=== PATIENT | female | born 1965 | race Caucasian/White ===

== ENCOUNTER → 2024-10-29 13:55 | Outpatient (RCR) | payer BC, OTHER, SELFPAY ==
--- NOTE | 2023-06-07 10:52 | PT.OIE ---
Current Diagnoses Malignant neoplasm of overlapping sites of right female breast (06/07/23) Visit Care Team Role Provider Type Meredith Booker, TISH, ROTOPRINTER Family Provider Non-Staff Primary Care Provider Specialty: Medical Address: [address]ry Guzman, [place], [address] Email: Franki Dunaway MD Attending Provider Physician Referring Provider Specialty: Oncology Address: [address] [place] [address], [address], [place], [address] Email: Physical Therapy Initial Evaluation PT-OP-A Visit Information Start: 06/05/23 12:30 Freq: Status: Active Protocol: Document 06/07/23 08:52 [facility] (Rec: 06/07/23 10:52 [facility] [id number]) Out-Patient Physical Therapy Visit Information Visit Information Visit Type Initial Evaluation Visit Start Time 09:00 Visit Stop Time 10:15 Total Visit Minutes 75 Visit Number 1 Evaluation Information Evaluation Date 06/07/23 Precautions Precautions history breast cancer PT-OP-B Current Condition Start: 06/05/23 12:30 Freq: Status: Active Protocol: Document 06/07/23 08:52 [facility] (Rec: 06/07/23 10:52 [facility] [id number]) Current Condition History of Current Condition Onset Date 2019 Current Complaints swelling left UE and subaxillary region History of Current Condition malignant neoplasm right breast s/p sarah mastectomy 2019. Had very large lymph node on left node; removed, that space just kept filling with fluid, having swelling on left arm, seemed to resolve. 1 1/2 years ago reports the area where the fluid used to collect and lateral edge of scar on left hurts and is hard . Soreness increases during the night. Has a compression sleeve for sarah UE's and lymphedema pump (Flexitouch), hasn't used in about a year. Has done PT for lymphedema right UE in [facility]. At this time only wears compression sleeves when flying, thinks they still fit. No compression for subaxillary area. Hasn't done lymphatic massage for about a year, hasn 't done scar massage. Gets keloid scars. Considering reconstruction Prior Treatments and Tests PT in [facility] 2019 Treatment Goals Patient/Caregiver Goals decrease leftUE swelling and obtain approproate compression sleeve PT-OP-C Subjective Start: 06/05/23 12:30 Freq: Status: Active Protocol: Document 06/07/23 08:52 [facility] (Rec: 06/07/23 10:52 [facility] [id number]) OP-PT Pain Assessment Pain Assessment Grid Paper Pain Assessment Grid Completed Yes Location left subaxillary Description Aching,Sharp,Stabbing,Tender PT-OP-J Posture/Palpation/Skin Start: 06/05/23 12:30 Freq: Status: Active Protocol: Document 06/07/23 08:52 [facility] (Rec: 06/07/23 10:52 [facility] [id number]) Palpation Assessment Location left subaxillary Palpation Findings Edema,Tenderness Skin Assessment Edema Assessment left subaxillary Subjective Edema Description Pain,Tightness Comments lymphedema Left Arm Subjective Edema Description Tightness Comments lymphedema Incisional Assessment Incision Appearance/Comments well healed, good mobility PT-OP-K Range of Motion Start: 06/05/23 12:30 Freq: Status: Active Protocol: Document 06/07/23 08:52 [facility] (Rec: 06/07/23 10:52 [facility] [id number]) Shoulder Goniometric Range of Motion Shoulder Left Shoulder ROM WFL No Flexion 155 Extension 30 Abduction 150 Horizontal Abduction 145 External Rotation at 45 degrees 60 Abduction Internal Rotation Behind Back (text) T8 Right Shoulder ROM WFL Yes Shoulder ROM Limitations Shoulder ROM Limitations Soft Tissue Tightness,Pain, Swelling PT-OP-N Lymphedema Start: 06/05/23 12:30 Freq: Status: Active Protocol: Document 06/07/23 08:52 [facility] (Rec: 06/07/23 10:52 [facility] [id number]) Lymphedema Measurements Upper Extremity Circumference Measurements Right Affected MCP 20.4 cm Dorsum of Hand 21.8 cm Wrist 18.7 cm 5 cm From Wrist Crease 21.9 cm 10 cm From Wrist Crease 26.1 cm 15 cm From Wrist Crease 28.3 cm 20 cm From Wrist Crease 28.9 cm 25 cm From Wrist Crease 30.5 cm 30 cm From Wrist Crease 33.3 cm 35 cm From Wrist Crease 37.3 cm 40 cm From Wrist Crease 41.8 cm 45 cm From Wrist Crease 44 cm Elbow Joint 28.5 cm - 35 cm measuring over glucose monitor Left Unaffected MCP 19 cm Dorsum of Hand 20.6 cm Wrist 18.6 cm 5 cm From Wrist Crease 22.6 cm 10 cm From Wrist Crease 25.2 cm 15 cm From Wrist Crease 27.6 cm 20 cm From Wrist Crease 28.3 cm 25 cm From Wrist Crease 32.7 cm 30 cm From Wrist Crease 36.8 cm 35 cm From Wrist Crease 39.6 cm 40 cm From Wrist Crease 43.2 cm 45 cm From Wrist Crease 44 cm Elbow Joint 29.2 cm - 115.7 subaxillary 124.2 mastectomy scar line PT-OP-Q Treatments Start: 06/05/23 12:30 Freq: Status: Active Protocol: Document 06/07/23 08:52 [facility] (Rec: 06/07/23 10:52 [facility] [id number]) Lymphedema Treatment Manual Lymphatic Drainage Location for left subaxillary and left UE edema Comments patient instruction Lymphedema Wrapping Other discussed, given handout and shown extensive bandaging. To instruct next session Sequential Lymphedema Exercises Location issued handout, instructed Comments also issued handout for sidelying open book and arm [place] exercises Compression Garment Assessment Compression Garment Assessment Details patient did not bring Patient Education Lymphedema Pathology educated using posters Lymphedema Prevention instructed Lymphedema Precautions instructed Compression Garments discussed options, shown website Self Manual Lymphatic Drainage instructed and issued handout Sequential Lymphedema Exercises instructed and issued handout PT-OP-T Assessment and Plan Start: 06/05/23 12:30 Freq: Status: Active Protocol: Document 06/07/23 08:52 [facility] (Rec: 06/07/23 10:52 [facility] [id number]) Physical Therapy Assessment Rehab Potential Rehabilitation Potential Good Evaluation Complexity Number of Personal Factors/Comorbidities 1-2 Number of Body Systems Impaired 3 Clinical Presentation at Evaluation Evolving Impairments Impairments Edema Goals Three Impairment pain subaxillary region Retirement Goal (LTG) Decrease pain to no greater than 2/10 to allow patient to sleep through the night LTG Duration 09/05/23 Two Impairment lymphedema life impact scale 42% Retirement Goal (LTG) Decrease lymphedema life impact scale to no greater than 20% as measure of improved understanding and self management and improved activity tolerance and quality of life. LTG Duration 09/05/23 One Impairment lymphedema sarah UE left greater than right, left subaxillary lymphedema Short Term Goal (STG) Patient to be instructed in all aspects of lymphedema care including skin care, manual lymphatic drainage, lymphedema exercises, and compression STG Duration 07/08/23 Retirement Goal (LTG) Patient to be independent and compliant with all aspects of lymphedema care, decrease circumferential measurements to stable level (no increase or decrease greater than 1 cm over the course of 1 week), and obtain appropriate compression garments LTG Duration 09/05/23 Assessment Summary Assessment Patient presents to PT with function-limiting and recent worsening lymphedema left UE and subaxillary region; resulted from bilateral mastectomy with additional lymph node removal left in 2019. Also c/o pain lateral left mastectomy scar and subaxillary region which interrupts her sleep. States that after treatment in 2019 the lymphedema seemed to resolve so she hasn't been wearing compression sleeves except to fly, and hasn't ever worn compression for subaxillary region. Was never taught lymphedema bandaging. She has a Flexitouch pump but hasn't used for about 1 year. Has tightess left shoulder, no current UE exercises. Feel patient would benefit from PT for Complete Decongestive Therapy to instruct her in all aspects of lymphedema self- management, assure she has appropriate compression garments including compression bra for subaxillary compression (issued loaner compression bra today for trial). Initiated treatment today with manual lymphatic drainage with instruction in self-massage and instruction to resume use of Flexitouch pump, lymphedema exercises, discussion of compression options with patient to bring current compression sleeves next session and try loaner compression bra. She was shown online sources for exploration. Patient was instructed in lymphedema exercises with additional targeted exercises for pec and shoulder stretching. Discussed POC and patient was in agreement. Physical Therapy Plan Frequency and Duration Frequency of Treatment 20 visits Duration of treatment (weeks) 12 Plan of Care Start Date 06/07/23 Plan of Care End Date 09/05/23 Therapeutic Interventions Therapeutic Interventions Home Exercise Program, Lymphedema Management,Manual Therapy,Patient/Caregiver Education,Self-Care/Home Management,Soft Tissue Mobilization Modalities Vasopneumatic Devices Next Visit Focus/Plan Next Note Type Treatment Note Next Visit Plan Take circumferential measurements. Provide manual lymphatic drainage with review self MLD, lymphedema exercises, discuss compression . Apply compression bandaging left UE with patient instruction in self-bandaging.
--- NOTE | 2023-06-07 10:52 | PT.OPPOC ---
Physical, Occupational & Speech Therapy At [facility] Current Diagnoses Malignant neoplasm of overlapping sites of right female breast (06/07/23) Visit Care Team Role Provider Type Meredith Booker, TISH, INTERACTIVE GRAPHIC DESIGNER Family Provider Non-Staff Primary Care Provider Specialty: Medical Address: [facility], [place], [address] Email: Franki Dunaway MD Attending Provider Physician Referring Provider Specialty: Oncology Address: [address] [place] [address], [address], [place], [address] Email: Plan Of Care PT-OP-T Assessment and Plan Start: 06/05/23 12:30 Freq: Status: Active Protocol: Document 06/07/23 08:52 [facility] (Rec: 06/07/23 10:52 [facility] [id number]) Physical Therapy Assessment Rehab Potential Rehabilitation Potential Good Evaluation Complexity Number of Personal Factors/Comorbidities 1-2 Number of Body Systems Impaired 3 Clinical Presentation at Evaluation Evolving Impairments Impairments Edema Goals Three Impairment pain subaxillary region Residential Goal (LTG) Decrease pain to no greater than 2/10 to allow patient to sleep through the night LTG Duration 09/05/23 Two Impairment lymphedema life impact scale 42% Residential Goal (LTG) Decrease lymphedema life impact scale to no greater than 20% as measure of improved understanding and self management and improved activity tolerance and quality of life. LTG Duration 09/05/23 One Impairment lymphedema sarah UE left greater than right, left subaxillary lymphedema Short Term Goal (STG) Patient to be instructed in all aspects of lymphedema care including skin care, manual lymphatic drainage, lymphedema exercises, and compression STG Duration 07/08/23 Dental Practitioner Goal (LTG) Patient to be independent and compliant with all aspects of lymphedema care, decrease circumferential measurements to stable level (no increase or decrease greater than 1 cm over the course of 1 week), and obtain appropriate compression garments LTG Duration 09/05/23 Assessment Summary Assessment Patient presents to PT with function-limiting and recent worsening lymphedema left UE and subaxillary region; resulted from bilateral mastectomy with additional lymph node removal left in 2019. Also c/o pain lateral left mastectomy scar and subaxillary region which interrupts her sleep. States that after treatment in 2019 the lymphedema seemed to resolve so she hasn't been wearing compression sleeves except to fly, and hasn't ever worn compression for subaxillary region. Was never taught lymphedema bandaging. She has a Flexitouch pump but hasn't used for about 1 year. Has tightess left shoulder, no current UE exercises. Feel patient would benefit from PT for Complete Decongestive Therapy to instruct her in all aspects of lymphedema self- management, assure she has appropriate compression garments including compression bra for subaxillary compression (issued loaner compression bra today for trial). Initiated treatment today with manual lymphatic drainage with instruction in self-massage and instruction to resume use of Flexitouch pump, lymphedema exercises, discussion of compression options with patient to bring current compression sleeves next session and try loaner compression bra. She was shown online sources for exploration. Patient was instructed in lymphedema exercises with additional targeted exercises for pec and shoulder stretching. Discussed POC and patient was in agreement. Physical Therapy Plan Frequency and Duration Frequency of Treatment 20 visits Duration of treatment (weeks) 12 Plan of Care Start Date 06/07/23 Plan of Care End Date 09/05/23 Therapeutic Interventions Therapeutic Interventions Home Exercise Program, Lymphedema Management,Manual Therapy,Patient/Caregiver Education,Self-Care/Home Management,Soft Tissue Mobilization Modalities Vasopneumatic Devices Next Visit Focus/Plan Next Note Type Treatment Note Next Visit Plan Take circumferential measurements. Provide manual lymphatic drainage with review self MLD, lymphedema exercises, discuss compression . Apply compression bandaging left UE with patient instruction in self-bandaging. Plan of Care Dates Plan of Care Start Date 06/07/23 Plan of Care End Date 09/05/23 Electronically Signed by: Melonie Antonio, PT 06/07/23 [id number] If you are in agreement with this Plan of Care, please return a signed and dated copy. I have reviewed this Plan of Care and certify that the skilled therapy services above are required to meet the patient?s needs. Physician Signature Date Printed Name and Credentials Clinical Instructor Signature Printed Name and Credentials
--- NOTE | 2023-06-12 10:41 | PT-OP ANOTE ---
going to ER due to pancreas issues
--- NOTE | 2023-06-19 15:02 | PT.OTN ---
Current Diagnoses Malignant neoplasm of overlapping sites of right female breast (06/19/23) Physical Therapy Treatment Note PT-OP-A Visit Information Start: 06/05/23 12:30 Freq: Status: Active Protocol: Document 06/19/23 13:50 [facility] (Rec: 06/19/23 14:00 [facility] [id number]) Out-Patient Physical Therapy Visit Information Visit Information Visit Type Treatment Note Visit Start Time 13:45 Visit Stop Time 14:50 Total Visit Minutes 65 Visit Number 2 PT-OP-B Current Condition Start: 06/05/23 12:30 Freq: Status: Active Protocol: Document 06/07/23 08:52 [facility] (Rec: 06/07/23 10:52 [facility] [id number]) Current Condition History of Current Condition Onset Date 2019 Current Complaints swelling left UE and subaxillary region History of Current Condition malignant neoplasm right breast s/p sarah mastectomy 2019. Had very large lymph node on left node; removed, that space just kept filling with fluid, having swelling on left arm, seemed to resolve. 1 1/2 years ago reports the area where the fluid used to collect and lateral edge of scar on left hurts and is hard . Soreness increases during the night. Has a compression sleeve for sarah UE's and lymphedema pump (Flexitouch), hasn't used in about a year. Has done PT for lymphedema right UE in [facility]. At this time only wears compression sleeves when flying, thinks they still fit. No compression for subaxillary area. Hasn't done lymphatic massage for about a year, hasn 't done scar massage. Gets keloid scars. Considering reconstruction Prior Treatments and Tests PT in [facility] 2018 Treatment Goals Patient/Caregiver Goals decrease leftUE swelling and obtain approproate compression sleeve PT-OP-C Subjective Start: 06/05/23 12:30 Freq: Status: Active Protocol: Document 06/19/23 13:50 [facility] (Rec: 06/19/23 14:00 [facility] [id number]) OP-PT Subjective Patient Comments Patient Comments Used compression pump 2x, feels helpful. Forgot she had compression bra, has now worn 2x; feels good about wearing. Found compression sleeves and they fit. Has been doing her exercises. Lateral trunk more sore. PT-OP-J Posture/Palpation/Skin Start: 12/04/23 12:30 Freq: Status: Active Protocol: Document 06/07/23 08:52 [facility] (Rec: 06/07/23 10:52 [facility] [id number]) Palpation Assessment Location left subaxillary Palpation Findings Edema,Tenderness Skin Assessment Edema Assessment left subaxillary Subjective Edema Description Pain,Tightness Comments lymphedema Left Arm Subjective Edema Description Tightness Comments lymphedema Incisional Assessment Incision Appearance/Comments well healed, good mobility PT-OP-K Range of Motion Start: 06/05/23 12:30 Freq: Status: Active Protocol: Document 06/07/23 08:52 [facility] (Rec: 06/07/23 10:52 [facility] [id number]) Shoulder Goniometric Range of Motion Shoulder Left Shoulder ROM WFL No Flexion 155 Extension 30 Abduction 150 Horizontal Abduction 145 External Rotation at 45 degrees 60 Abduction Internal Rotation Behind Back (text) T8 Right Shoulder ROM WFL Yes Shoulder ROM Limitations Shoulder ROM Limitations Soft Tissue Tightness,Pain, Swelling PT-OP-N Lymphedema Start: 06/05/23 12:30 Freq: Status: Active Protocol: Document 06/19/23 13:50 [facility] (Rec: 06/19/23 14:11 [facility] [id number]) Lymphedema Measurements Upper Extremity Circumference Measurements Left Unaffected MCP 19.1 cm Dorsum of Hand 21.8 cm Wrist 19.2 cm 5 cm From Wrist Crease 21.8 cm 10 cm From Wrist Crease 24.2 cm 15 cm From Wrist Crease 27.2 cm 20 cm From Wrist Crease 28.5 cm 25 cm From Wrist Crease 31.8 cm 30 cm From Wrist Crease 36.4 cm 35 cm From Wrist Crease 39.5 cm 40 cm From Wrist Crease 43.1 cm 45 cm From Wrist Crease 43.5 cm Elbow Joint 28.8 cm - 116 123.5 PT-OP-Q Treatments Start: 06/05/23 12:30 Freq: Status: Active Protocol: Document 06/19/23 13:50 [facility] (Rec: 06/19/23 14:00 [facility] [id number]) Lymphedema Treatment Manual Lymphatic Drainage Location for left subaxillary and left UE edema Comments patient instruction Lymphedema Wrapping Other discussed, given handout and shown extensive bandaging. To instruct next session Sequential Lymphedema Exercises Location issued handout, instructed Comments also issued handout for sidelying open book and arm [id number] exercises Compression Garment Assessment Compression Garment Assessment Details good fit Juz[place] 20-30 mm Hg sarah UE sleeves Patient Education Lymphedema Pathology review Compression Garments shown options for swell spot, loaned to patient for home use Self Manual Lymphatic Drainage reviewed Other Other Education in importance of consistent compliance to self- care for lymphedema; need consistent MLD, exercise, compression, and skin care, plus use of lymphatic pump. PT-OP-T Assessment and Plan Start: 06/05/23 12:30 Freq: Status: Active Protocol: Document 06/19/23 13:50 [facility] (Rec: 06/19/23 14:00 [facility] [id number]) Physical Therapy Assessment Goals Three Impairment pain subaxillary region Assistant Controller Goal (LTG) Decrease pain to no greater than 2/10 to allow patient to sleep through the night LTG Duration 09/05/23 Two Impairment lymphedema life impact scale 42% Senior Living Goal (LTG) Decrease lymphedema life impact scale to no greater than 20% as measure of improved understanding and self management and improved activity tolerance and quality of life. LTG Duration 09/05/23 One Impairment lymphedema sarah UE left greater than right, left subaxillary lymphedema Short Term Goal (STG) Patient to be instructed in all aspects of lymphedema care including skin care, manual lymphatic drainage, lymphedema exercises, and compression STG Duration 07/08/23 Assistant Controller Goal (LTG) Patient to be independent and compliant with all aspects of lymphedema care, decrease circumferential measurements to stable level (no increase or decrease greater than 1 cm over the course of 1 week), and obtain appropriate compression garments LTG Duration 09/05/23 Assessment Summary Assessment Fair compliance to self-care; inconsistent and complicated by being in ER due to pancreas issue; will be going to see surgeon. Mild dec measurements left forearm, no change left upper arm. Good fit of patient current compression sleeves but patient educated that bandaging is for reduction, garments for maintenance. She didn't feel up to being bandaged today but was assisted into compression bra, sleeves, and was given med swell spot for breast /lateral trunk with good fit. She will consider purchasing one for home use. Physical Therapy Plan Frequency and Duration Frequency of Treatment 20 visits Duration of treatment (weeks) 12 Plan of Care Start Date 06/07/23 Plan of Care End Date 09/05/23 Therapeutic Interventions Therapeutic Interventions Home Exercise Program, Lymphedema Management,Manual Therapy,Patient/Caregiver Education,Self-Care/Home Management,Soft Tissue Mobilization Modalities Vasopneumatic Devices Next Visit Focus/Plan Next Note Type Treatment Note Next Visit Plan Continue CDT, increased emphasis left lateral trunk. Assess response to wearing compression garments.
--- NOTE | 2023-06-22 09:27 | PT.OTN ---
Current Diagnoses Malignant neoplasm of overlapping sites of right female breast (06/22/23) Physical Therapy Treatment Note PT-OP-A Visit Information Start: 06/05/23 12:30 Freq: Status: Active Protocol: Document 06/22/23 08:10 [facility] (Rec: 06/22/23 09:25 [facility] [id number]) Out-Patient Physical Therapy Visit Information Visit Information Visit Type Treatment Note Visit Start Time 08:15 Visit Stop Time 09:20 Total Visit Minutes 65 Visit Number 3 PT-OP-B Current Condition Start: 06/05/23 12:30 Freq: Status: Active Protocol: Document 06/07/23 08:52 [facility] (Rec: 06/07/23 10:52 [facility] [id number]) Current Condition History of Current Condition Onset Date 2019 Current Complaints swelling left UE and subaxillary region History of Current Condition malignant neoplasm right breast s/p sarah mastectomy 2019. Had very large lymph node on left node; removed, that space just kept filling with fluid, having swelling on left arm, seemed to resolve. 1 1/2 years ago reports the area where the fluid used to collect and lateral edge of scar on left hurts and is hard . Soreness increases during the night. Has a compression sleeve for sarah UE's and lymphedema pump (Flexitouch), hasn't used in about a year. Has done PT for lymphedema right UE in [facility]. At this time only wears compression sleeves when flying, thinks they still fit. No compression for subaxillary area. Hasn't done lymphatic massage for about a year, hasn 't done scar massage. Gets keloid scars. Considering reconstruction Prior Treatments and Tests PT in [facility] 2018 Treatment Goals Patient/Caregiver Goals decrease leftUE swelling and obtain approproate compression sleeve PT-OP-C Subjective Start: 06/05/23 12:30 Freq: Status: Active Protocol: Document 06/22/23 08:10 [facility] (Rec: 06/22/23 09:25 [facility] [id number]) OP-PT Subjective Patient Comments Patient Comments Has worn compression bra every day, feels better, less full. Wearing compression sleeve PT-OP-J Posture/Palpation/Skin Start: 06/05/23 12:30 Freq: Status: Active Protocol: Document 06/07/23 08:52 [facility] (Rec: 06/07/23 10:52 [facility] [id number]) Palpation Assessment Location left subaxillary Palpation Findings Edema,Tenderness Skin Assessment Edema Assessment left subaxillary Subjective Edema Description Pain,Tightness Comments lymphedema Left Arm Subjective Edema Description Tightness Comments lymphedema Incisional Assessment Incision Appearance/Comments well healed, good mobility PT-OP-K Range of Motion Start: 06/05/23 12:30 Freq: Status: Active Protocol: Document 06/07/23 08:52 [facility] (Rec: 06/07/23 10:52 [facility] [id number]) Shoulder Goniometric Range of Motion Shoulder Left Shoulder ROM WFL No Flexion 155 Extension 30 Abduction 150 Horizontal Abduction 145 External Rotation at 45 degrees 60 Abduction Internal Rotation Behind Back (text) T8 Right Shoulder ROM WFL Yes Shoulder ROM Limitations Shoulder ROM Limitations Soft Tissue Tightness,Pain, Swelling PT-OP-N Lymphedema Start: 06/05/23 12:30 Freq: Status: Active Protocol: Document 06/22/23 08:10 [facility] (Rec: 06/22/23 09:25 [facility] [id number]) Lymphedema Measurements Upper Extremity Circumference Measurements Left Unaffected - 113.5 120.4 PT-OP-Q Treatments Start: 06/05/23 12:30 Freq: Status: Active Protocol: Document 06/22/23 08:10 [facility] (Rec: 06/22/23 09:25 [facility] [id number]) Therapeutic Exercises Sidelying Exercises open book Reps/Minutes 5x shoulder abd Sidelying Exercise Name stretch Reps/Minutes 5x5 Lymphedema Treatment Manual Lymphatic Drainage Location for left subaxillary and left UE edema Comments continue patient review and instructio of technique Lymphedema Wrapping Other instruct next session, not done today due to patient work schedule Sequential Lymphedema Exercises Comments open book, sidelying abduction , pulleys for shld flex and abd, passive shoulder ER with distraction done today 5reps ea Compression Garment Assessment Compression Garment Assessment Details good fit compression bra Patient Education Sequential Lymphedema Exercises ther ex as above Other Other instr put compression on right after shower, consider night garment (sports bra, night sleeve) PT-OP-T Assessment and Plan Start: 06/05/23 12:30 Freq: Status: Active Protocol: Document 06/22/23 08:10 [facility] (Rec: 06/22/23 09:25 [facility] [id number]) Physical Therapy Assessment Goals Three Impairment pain subaxillary region Senior Living Goal (LTG) Decrease pain to no greater than 2/10 to allow patient to sleep through the night LTG Duration 09/05/23 Two Impairment lymphedema life impact scale 42% Senior Living Goal (LTG) Decrease lymphedema life impact scale to no greater than 20% as measure of improved understanding and self management and improved activity tolerance and quality of life. LTG Duration 09/05/23 One Impairment lymphedema sarah UE left greater than right, left subaxillary lymphedema Short Term Goal (STG) Patient to be instructed in all aspects of lymphedema care including skin care, manual lymphatic drainage, lymphedema exercises, and compression STG Duration 07/08/23 Sand Cutter Goal (LTG) Patient to be independent and compliant with all aspects of lymphedema care, decrease circumferential measurements to stable level (no increase or decrease greater than 1 cm over the course of 1 week), and obtain appropriate compression garments LTG Duration 09/05/23 Progress Towards Goals Progress Towards Goals Progressing Toward Goals Assessment Summary Assessment Good compliance to wearing compression bra and padding, still considering swell spot. Had problems with compression sleeve sliding down on left UE causing discomfort. Decreased swelling subaxillary and chest region Physical Therapy Plan Frequency and Duration Frequency of Treatment 20 visits Duration of treatment (weeks) 12 Plan of Care Start Date 06/07/23 Plan of Care End Date 09/05/23 Therapeutic Interventions Therapeutic Interventions Home Exercise Program, Lymphedema Management,Manual Therapy,Patient/Caregiver Education,Self-Care/Home Management,Soft Tissue Mobilization Modalities Vasopneumatic Devices Next Visit Focus/Plan Next Note Type Treatment Note Next Visit Plan Continue CDT. Assess fit of any new compression garments. Circumferential measurements.
--- NOTE | 2023-07-05 09:40 | PT.OTN ---
Current Diagnoses Malignant neoplasm of overlapping sites of right female breast (07/05/23) Physical Therapy Treatment Note PT-OP-A Visit Information Start: 06/05/23 12:30 Freq: Status: Active Protocol: Document 07/05/23 08:10 [facility] (Rec: 07/05/23 08:58 [facility] [id number]) Out-Patient Physical Therapy Visit Information Visit Information Visit Type Treatment Note Visit Start Time 08:15 Visit Stop Time 09:30 Total Visit Minutes 70 Visit Number 4 Precautions Precautions history breast cancer PT-OP-B Current Condition Start: 06/05/23 12:30 Freq: Status: Active Protocol: Document 07/05/23 08:10 [facility] (Rec: 07/05/23 08:58 [facility] [id number]) Current Condition History of Current Condition Onset Date 2019 Current Complaints swelling left UE and subaxillary region History of Current Condition malignant neoplasm right breast s/p sarah mastectomy 2019. Had very large lymph node on left node; removed, that space just kept filling with fluid, having swelling on left arm, seemed to resolve. 1 1/2 years ago reports the area where the fluid used to collect and lateral edge of scar on left hurts and is hard . Soreness increases during the night. Has a compression sleeve for sarah UE's and lymphedema pump (Flexitouch), hasn't used in about a year. Has done PT for lymphedema right UE in [facility]. At this time only wears compression sleeves when flying, thinks they still fit. No compression for subaxillary area. Hasn't done lymphatic massage for about a year, hasn 't done scar massage. Gets keloid scars. Considering reconstruction Prior Treatments and Tests PT in [facility] 2018 PT-OP-C Subjective Start: 06/05/23 12:30 Freq: Status: Active Protocol: Document 07/05/23 08:10 [facility] (Rec: 07/05/23 08:58 [facility] [id number]) OP-PT Subjective Patient Comments Patient Comments States she feels like she needs to establish a better routine for her lymphedema management. Flying to [place] on Monday. Hasn't yet ordered pulleys or swell spot. PT-OP-J Posture/Palpation/Skin Start: 06/05/23 12:30 Freq: Status: Active Protocol: Document 06/07/23 08:52 [facility] (Rec: 06/07/23 10:52 [facility] [id number]) Palpation Assessment Location left subaxillary Palpation Findings Edema,Tenderness Skin Assessment Edema Assessment left subaxillary Subjective Edema Description Pain,Tightness Comments lymphedema Left Arm Subjective Edema Description Tightness Comments lymphedema Incisional Assessment Incision Appearance/Comments well healed, good mobility PT-OP-K Range of Motion Start: 06/05/23 12:30 Freq: Status: Active Protocol: Document 06/07/23 08:52 [facility] (Rec: 06/07/23 10:52 [facility] [id number]) Shoulder Goniometric Range of Motion Shoulder Left Shoulder ROM WFL No Flexion 155 Extension 30 Abduction 150 Horizontal Abduction 145 External Rotation at 45 degrees 60 Abduction Internal Rotation Behind Back (text) T8 Right Shoulder ROM WFL Yes Shoulder ROM Limitations Shoulder ROM Limitations Soft Tissue Tightness,Pain, Swelling PT-OP-N Lymphedema Start: 06/05/23 12:30 Freq: Status: Active Protocol: Document 07/05/23 08:10 [facility] (Rec: 07/05/23 08:58 [facility] [id number]) Lymphedema Measurements Upper Extremity Circumference Measurements Right Affected MCP 20 cm Dorsum of Hand 22.4 cm Wrist 18.6 cm 5 cm From Wrist Crease 22.3 cm 10 cm From Wrist Crease 26.8 cm 15 cm From Wrist Crease 28.8 cm 20 cm From Wrist Crease 28.9 cm 25 cm From Wrist Crease 29.6 cm 30 cm From Wrist Crease 29.8 cm 35 cm From Wrist Crease 34.3 cm 40 cm From Wrist Crease 37.9 cm 45 cm From Wrist Crease 44 cm Elbow Joint 28.5 cm Left Unaffected MCP 18.7 cm Dorsum of Hand 21 cm Wrist 18.9 cm 5 cm From Wrist Crease 22.4 cm 10 cm From Wrist Crease 25.2 cm 15 cm From Wrist Crease 27.9 cm 20 cm From Wrist Crease 28.9 cm 25 cm From Wrist Crease 32.2 cm 30 cm From Wrist Crease 36.5 cm 35 cm From Wrist Crease 40 cm 40 cm From Wrist Crease 44.3 cm 45 cm From Wrist Crease 45 cm Elbow Joint 29.8 cm - 115.4 122 35 cm measuring over glucose monitor PT-OP-Q Treatments Start: 06/05/23 12:30 Freq: Status: Active Protocol: Document 07/05/23 08:10 [facility] (Rec: 07/05/23 08:58 [facility] [id number]) Therapeutic Exercises Sidelying Exercises [place] Reps/Minutes 5x ea Comments with manual scapular upward rotation with elevation above 90 open book Reps/Minutes 5x Comments verbal and manual cues for segmental, deep breath shoulder abd Sidelying Exercise Name stretch Reps/Minutes 5x5 Sitting Exercises pulleys Sitting Exercise Name flexion and abduction Reps/Minutes 4 min Comments ball behind thoracic spine Lymphedema Treatment Manual Lymphatic Drainage Location for left subaxillary and left UE edema Comments continue patient review and instructio of technique Lymphedema Wrapping Other instruct next session, not done today due to patient work schedule Sequential Lymphedema Exercises Comments open book, sidelying abduction , pulleys for shld flex and abd, passive shoulder ER with distraction done today 5reps ea Other Other Patient issued handout template for contacting insurance company regarding insurance coverage for compression garments, also given the [employer] information (company that will check into insurance coverage for garments.) PT-OP-T Assessment and Plan Start: 06/05/23 12:30 Freq: Status: Active Protocol: Document 07/05/23 08:10 [facility] (Rec: 07/05/23 08:58 [facility] [id number]) Physical Therapy Assessment Goals Three Impairment pain subaxillary region [facility] Goal (LTG) Decrease pain to no greater than 2/10 to allow patient to sleep through the night 07/05/23: goal progress LTG Duration 09/05/23 Two Impairment lymphedema life impact scale 42% [facility] Goal (LTG) Decrease lymphedema life impact scale to no greater than 20% as measure of improved understanding and self management and improved activity tolerance and quality of life. 07/05/23: goal progress LTG Duration 09/05/23 One Impairment lymphedema sarah UE left greater than right, left subaxillary lymphedema Short Term Goal (STG) Patient to be instructed in all aspects of lymphedema care including skin care, manual lymphatic drainage, lymphedema exercises, and compression 07/05/23: good goal progress, less cues requird STG Duration 07/08/23 [facility] Goal (LTG) Patient to be independent and compliant with all aspects of lymphedema care, decrease circumferential measurements to stable level (no increase or decrease greater than 1 cm over the course of 1 week), and obtain appropriate compression garments LTG Duration 09/05/23 Assessment Summary Assessment Patient reported 4 lb weight gain over holidays, noted increase in circumferential measurements most measurements sarah UE's which I attribute to weight gain. WEaring compression sleeves and bra, though no swell spot yet. Cues for correct exercise performance. Instructed in daily recommended schedule for lymphedema management; patient demonstrated good understanding including again reminder of wearing compression with exercises. Patient leaving for [place] this Monday and was issued information regarding air travel lymphedema management. Patient considering compression sleeve with strap to keep them from sliding down as much. Physical Therapy Plan Frequency and Duration Frequency of Treatment 20 visits Duration of treatment (weeks) 12 Plan of Care Start Date 06/07/23 Plan of Care End Date 09/05/23 Therapeutic Interventions Therapeutic Interventions Home Exercise Program, Lymphedema Management,Manual Therapy,Patient/Caregiver Education,Self-Care/Home Management,Soft Tissue Mobilization Modalities Vasopneumatic Devices Next Visit Focus/Plan Next Note Type Treatment Note Next Visit Plan Continue CDT. Assess fit of any new compression garments. Circumferential measurements.
--- NOTE | 2023-08-07 15:45 | PT.OTN ---
Current Diagnoses Malignant neoplasm of overlapping sites of right female breast (08/07/23) Physical Therapy Treatment Note PT-OP-A Visit Information Start: 06/05/23 12:30 Freq: Status: Active Protocol: Document 08/07/23 13:00 [facility] (Rec: 08/07/23 13:24 [facility] [id number]) Out-Patient Physical Therapy Visit Information Visit Information Visit Type Treatment Note Visit Start Time 13:00 Visit Stop Time 14:25 Visit Number 5 Precautions Precautions history breast cancer PT-OP-B Current Condition Start: 06/05/23 12:30 Freq: Status: Active Protocol: Document 08/07/23 13:00 [facility] (Rec: 08/07/23 13:24 [facility] [id number]) Current Condition History of Current Condition Onset Date 2019 Current Complaints swelling left UE and subaxillary region History of Current Condition malignant neoplasm right breast s/p sarah mastectomy 2019. Had very large lymph node on left node; removed, that space just kept filling with fluid, having swelling on left arm, seemed to resolve. 1 1/2 years ago reports the area where the fluid used to collect and lateral edge of scar on left hurts and is hard . Soreness increases during the night. Has a compression sleeve for sarah UE's and lymphedema pump (Flexitouch), hasn't used in about a year. Has done PT for lymphedema right UE in [facility]. At this time only wears compression sleeves when flying, thinks they still fit. No compression for subaxillary area. Hasn't done lymphatic massage for about a year, hasn 't done scar massage. Gets keloid scars. Considering reconstruction Prior Treatments and Tests PT in [facility] 2018 PT-OP-C Subjective Start: 06/05/23 12:30 Freq: Status: Active Protocol: Document 08/07/23 13:00 [facility] (Rec: 08/07/23 13:24 [facility] [id number]) OP-PT Subjective Patient Comments Patient Comments Back from vacation, had increase in swelling especially on flight back. Has sleeves and bra. Hasn't gotten a swell spot yet, brought loaner back. Reports end of scar feels really hard and more painful, hasn't tried vitamin E oil. Hasn't done exercises since has been back 2 weeks ago. PT-OP-J Posture/Palpation/Skin Start: 06/05/23 12:30 Freq: Status: Active Protocol: Document 06/07/23 08:52 [facility] (Rec: 06/07/23 10:52 [facility] [id number]) Palpation Assessment Location left subaxillary Palpation Findings Edema,Tenderness Skin Assessment Edema Assessment left subaxillary Subjective Edema Description Pain,Tightness Comments lymphedema Left Arm Subjective Edema Description Tightness Comments lymphedema Incisional Assessment Incision Appearance/Comments well healed, good mobility PT-OP-K Range of Motion Start: 06/05/23 12:30 Freq: Status: Active Protocol: Document 06/07/23 08:52 [facility] (Rec: 06/07/23 10:52 [facility] [id number]) Shoulder Goniometric Range of Motion Shoulder Left Shoulder ROM WFL No Flexion 155 Extension 30 Abduction 150 Horizontal Abduction 145 External Rotation at 45 degrees 60 Abduction Internal Rotation Behind Back (text) T8 Right Shoulder ROM WFL Yes Shoulder ROM Limitations Shoulder ROM Limitations Soft Tissue Tightness,Pain, Swelling PT-OP-N Lymphedema Start: 06/05/23 12:30 Freq: Status: Active Protocol: Document 08/07/23 13:00 [facility] (Rec: 08/07/23 13:24 [facility] [id number]) Lymphedema Measurements Upper Extremity Circumference Measurements Right Affected MCP 19.5 cm Dorsum of Hand 21.8 cm Wrist 18.4 cm 5 cm From Wrist Crease 23.1 cm 10 cm From Wrist Crease 26.8 cm 15 cm From Wrist Crease 28.9 cm 20 cm From Wrist Crease 29.1 cm 25 cm From Wrist Crease 32.2 cm 30 cm From Wrist Crease 38.3 cm 35 cm From Wrist Crease 41.8 cm 40 cm From Wrist Crease 43.8 cm Elbow Joint 29.9 cm Left Unaffected MCP 18.7 cm Dorsum of Hand 19.8 cm Wrist 18.3 cm 5 cm From Wrist Crease 21.8 cm 10 cm From Wrist Crease 25.4 cm 15 cm From Wrist Crease 28 cm 20 cm From Wrist Crease 29.2 cm 25 cm From Wrist Crease 32.6 cm 30 cm From Wrist Crease 37.8 cm 35 cm From Wrist Crease 41.6 cm 40 cm From Wrist Crease 43.7 cm 45 cm From Wrist Crease 45 cm Elbow Joint 29.5 cm - 117.2 124.2 35 cm measuring over glucose monitor PT-OP-Q Treatments Start: 06/05/23 12:30 Freq: Status: Active Protocol: Document 08/07/23 13:00 [facility] (Rec: 08/07/23 15:41 [facility] [id number]) Therapeutic Exercises Sidelying Exercises ruby Reps/Minutes 5x ea Comments with manual scapular upward rotation with elevation above 90 open book Reps/Minutes 5x Comments verbal and manual cues for segmental, deep breath Lymphedema Treatment Manual Lymphatic Drainage Location for left subaxillary and left UE edema Comments continue patient review and instructio of technique Lymphedema Wrapping Other instruct next session, not done today due to patient work schedule Sequential Lymphedema Exercises Comments reviewed for home performance Other Other self pin and stretch for left subaxillar tissue PT-OP-T Assessment and Plan Start: 06/05/23 12:30 Freq: Status: Active Protocol: Document 08/07/23 13:00 [facility] (Rec: 08/07/23 13:24 [facility] [id number]) Physical Therapy Assessment Goals Three Impairment pain subaxillary region [facility] Goal (LTG) Decrease pain to no greater than 2/10 to allow patient to sleep through the night 07/05/23: goal progress LTG Duration 09/05/23 Two Impairment lymphedema life impact scale 42% [facility] Goal (LTG) Decrease lymphedema life impact scale to no greater than 20% as measure of improved understanding and self management and improved activity tolerance and quality of life. 07/05/23: goal progress LTG Duration 09/05/23 One Impairment lymphedema sarah UE left greater than right, left subaxillary lymphedema Short Term Goal (STG) Patient to be instructed in all aspects of lymphedema care including skin care, manual lymphatic drainage, lymphedema exercises, and compression 07/05/23: good goal progress, less cues requird STG Duration 07/08/23 [facility] Goal (LTG) Patient to be independent and compliant with all aspects of lymphedema care, decrease circumferential measurements to stable level (no increase or decrease greater than 1 cm over the course of 1 week), and obtain appropriate compression garments LTG Duration 09/05/23 Assessment Summary Assessment circumferential measurements variable, discussed potential causes, encouraged increased compliance to HEP, wearing of compession,doing self-massage. Physical Therapy Plan Frequency and Duration Frequency of Treatment 20 visits Duration of treatment (weeks) 12 Plan of Care Start Date 12/06/23 Plan of Care End Date 09/05/23 Therapeutic Interventions Therapeutic Interventions Home Exercise Program, Lymphedema Management,Manual Therapy,Patient/Caregiver Education,Self-Care/Home Management,Soft Tissue Mobilization Modalities Vasopneumatic Devices Next Visit Focus/Plan Next Note Type Treatment Note Next Visit Plan Continue CDT. Pin and stretch for left shoulder and lateral trunk Circumferential measurements.
--- NOTE | 2023-09-05 15:01 | PT.OTRE ---
Current Diagnoses Malignant neoplasm of overlapping sites of right female breast (09/05/23) Visit Care Team Role Provider Type Meredith Booker, TISH, MOTORCYCLE RIDING INSTRUCTOR Family Provider Non-Staff Primary Care Provider Specialty: Medical Address: [address], [place], [address] Email: Franki Dunaway MD Attending Provider Physician Referring Provider Specialty: Oncology Address: [address] [place] [address], [address], [place], [address] Email: Physical Therapy Re-Evaluation PT-OP-A Visit Information Start: 06/05/23 12:30 Freq: Status: Active Protocol: Document 09/05/23 13:39 [facility]AK (Rec: 09/05/23 15:01 [facility]AK [id number]) Out-Patient Physical Therapy Visit Information Visit Information Visit Type Treatment Note Visit Start Time 13:45 Visit Stop Time 15:00 Visit Number 6 Precautions Precautions history breast cancer PT-OP-B Current Condition Start: 06/05/23 12:30 Freq: Status: Active Protocol: Document 09/05/23 13:39 [facility]AK (Rec: 09/05/23 15:01 [facility] [id number]) Current Condition History of Current Condition Onset Date 2019 Current Complaints swelling left UE and subaxillary region History of Current Condition malignant neoplasm right breast s/p sarah mastectomy 2019. Had very large lymph node on left node; removed, that space just kept filling with fluid, having swelling on left arm, seemed to resolve. 1 1/2 years ago reports the area where the fluid used to collect and lateral edge of scar on left hurts and is hard . Soreness increases during the night. Has a compression sleeve for sarah UE's and lymphedema pump (Flexitouch), hasn't used in about a year. Has done PT for lymphedema right UE in [facility]. At this time only wears compression sleeves when flying, thinks they still fit. No compression for subaxillary area. Hasn't done lymphatic massage for about a year, hasn 't done scar massage. Gets keloid scars. Considering reconstruction Prior Treatments and Tests PT in [facility] 2018 PT-OP-C Subjective Start: 06/05/23 12:30 Freq: Status: Active Protocol: Document 09/05/23 13:39 [facility]AK (Rec: 09/05/23 15:01 [facility]AK [id number]) OP-PT Subjective Patient Comments Patient Comments Has not quit working. Getting sharp nerve pains under both arms and at chest. Unable to take medications. Has been wearing compression more often , not wearing today. Is flying on Monday PT-OP-J Posture/Palpation/Skin Start: 06/05/23 12:30 Freq: Status: Active Protocol: Document 06/07/23 08:52 [facility]AK (Rec: 06/07/23 10:52 [facility] [id number]) Palpation Assessment Location left subaxillary Palpation Findings Edema,Tenderness Skin Assessment Edema Assessment left subaxillary Subjective Edema Description Pain,Tightness Comments lymphedema Left Arm Subjective Edema Description Tightness Comments lymphedema Incisional Assessment Incision Appearance/Comments well healed, good mobility PT-OP-K Range of Motion Start: 06/05/23 12:30 Freq: Status: Active Protocol: Document 06/07/23 08:52 [facility] (Rec: 06/07/23 10:52 [facility] [id number]) Shoulder Goniometric Range of Motion Shoulder Measured in Degrees Left Shoulder ROM WFL No Flexion 155 Extension 30 Abduction 150 Horizontal Abduction 145 External Rotation at 45 degrees 60 Abduction Internal Rotation Behind Back (text) T8 Right Shoulder ROM WFL Yes Shoulder ROM Limitations Shoulder ROM Limitations Soft Tissue Tightness,Pain, Swelling PT-OP-N Lymphedema Start: 06/05/23 12:30 Freq: Status: Active Protocol: Document 09/05/23 13:39 [facility] (Rec: 09/05/23 15:01 [facility] [id number]) Lymphedema Measurements Upper Extremity Circumference Measurements Right Affected MCP 20.2 cm Dorsum of Hand 22.2 cm Wrist 18.8 cm 5 cm From Wrist Crease 22.2 cm 10 cm From Wrist Crease 26.7 cm 15 cm From Wrist Crease 28.5 cm 20 cm From Wrist Crease 29.3 cm 25 cm From Wrist Crease 30.8 cm 30 cm From Wrist Crease 35.8 cm 35 cm From Wrist Crease 39.4 cm 40 cm From Wrist Crease 43.7 cm Elbow Joint 29.2 cm Left Unaffected MCP 18.7 cm Dorsum of Hand 20.3 cm Wrist 18.5 cm 5 cm From Wrist Crease 21.8 cm 10 cm From Wrist Crease 24.9 cm 15 cm From Wrist Crease 27.8 cm 20 cm From Wrist Crease 28.6 cm 25 cm From Wrist Crease 32.1 cm 30 cm From Wrist Crease 38.3 cm 35 cm From Wrist Crease 41.3 cm 40 cm From Wrist Crease 43.5 cm 45 cm From Wrist Crease 44.8 cm Elbow Joint 29.4 cm - 115.7 124.2 PT-OP-Q Treatments Start: 06/05/23 12:30 Freq: Status: Active Protocol: Document 09/05/23 13:39 [facility] (Rec: 09/05/23 15:01 [facility] [id number]) Lymphedema Treatment Manual Lymphatic Drainage Location for left subaxillary and left UE edema Comments continue patient review and instructio of technique Lymphedema Wrapping Other patient did not have time due to dental appointment. Other Other self pin and stretch for left subaxillar tissue PT-OP-T Assessment and Plan Start: 06/05/23 12:30 Freq: Status: Active Protocol: Document 09/05/23 13:39 [facility] (Rec: 09/05/23 15:01 [facility] [id number]) Physical Therapy Assessment Goals Three Impairment pain subaxillary region and chest left Intermediate Goal (LTG) Decrease pain to no greater than 2/10 to allow patient to sleep through the night 07/05/23: goal progress 09/05/23: decreased after PT but then returns LTG Duration 12/05/23 Two Impairment lymphedema life impact scale 42% Band Salvager Goal (LTG) Decrease lymphedema life impact scale to no greater than 20% as measure of improved understanding and self management and improved activity tolerance and quality of life. 07/05/23: goal progress LTG Duration 12/06/23 One Impairment lymphedema sarah UE left greater than right, left subaxillary lymphedema Short Term Goal (STG) Patient to be instructed in all aspects of lymphedema care including skin care, manual lymphatic drainage, lymphedema exercises, and compression 07/05/23: good goal progress, less cues requird STG Duration 10/16/23 Intermediate Goal (LTG) Patient to be independent and compliant with all aspects of lymphedema care, decrease circumferential measurements to stable level (no increase or decrease greater than 1 cm over the course of 1 week), and obtain appropriate compression garments 09/05/23: has bra, pump, sleeve, needs to get over the shoulder sleeve. LTG Duration 12/06/23 Assessment Summary Assessment Circumferential measurements decreased or stable, patient gradually increasing her compliance to self-care, is now retired and less stressed and anticipate improved follow -through. Would benefit from further PT due to potential for further improvement and only being seen for 6 sporadic treatments so far. Discussed POC and patient was in agreement. She is looking at other compression options as discussed today. Physical Therapy Plan Frequency and Duration Frequency of Treatment 20 visits Duration of treatment (weeks) 12 Plan of Care Start Date 09/05/23 Plan of Care End Date 12/06/23 Therapeutic Interventions Therapeutic Interventions Home Exercise Program, Lymphedema Management,Manual Therapy,Patient/Caregiver Education,Self-Care/Home Management,Soft Tissue Mobilization Modalities Vasopneumatic Devices Next Visit Focus/Plan Next Note Type Treatment Note Next Visit Plan Continue CDT. Pin and stretch for left shoulder and lateral trunk Circumferential measurements. REview self- bandaging in case of flare.
--- NOTE | 2023-09-05 15:01 | PT.OPPOC ---
Physical, Occupational & Speech Therapy At [facility] Current Diagnoses Malignant neoplasm of overlapping sites of right female breast (09/05/23) Visit Care Team Role Provider Type Meredith Booker, TISH, DESKTOP SUPPORT SPECIALIST Family Provider Non-Staff Primary Care Provider Specialty: Medical Address: [facility] [address], [place], [address] Email: Franki Dunaway MD Attending Provider Physician Referring Provider Specialty: Oncology Address: [address] [place] [address], [address], [place], [address] Email: Plan Of Care PT-OP-T Assessment and Plan Start: 06/05/23 12:30 Freq: Status: Active Protocol: Document 09/05/23 13:39 SAK (Rec: 09/05/23 15:01 SAK [id number]) Physical Therapy Assessment Goals Three Impairment pain subaxillary region and chest left Salesperson Automobiles Goal (LTG) Decrease pain to no greater than 2/10 to allow patient to sleep through the night 07/05/23: goal progress 09/05/23: decreased after PT but then returns LTG Duration 12/05/23 Two Impairment lymphedema life impact scale 42% Fdc Goal (LTG) Decrease lymphedema life impact scale to no greater than 20% as measure of improved understanding and self management and improved activity tolerance and quality of life. 07/05/23: goal progress LTG Duration 12/06/23 One Impairment lymphedema sarah UE left greater than right, left subaxillary lymphedema Short Term Goal (STG) Patient to be instructed in all aspects of lymphedema care including skin care, manual lymphatic drainage, lymphedema exercises, and compression 07/05/23: good goal progress, less cues requird STG Duration 10/16/23 [employer]person [employer] Goal (LTG) Patient to be independent and compliant with all aspects of lymphedema care, decrease circumferential measurements to stable level (no increase or decrease greater than 1 cm over the course of 1 week), and obtain appropriate compression garments 09/05/23: has bra, pump, sleeve, needs to get over the shoulder sleeve. LTG Duration 12/06/23 Assessment Summary Assessment Circumferential measurements decreased or stable, patient gradually increasing her compliance to self-care, is now retired and less stressed and anticipate improved follow -through. Would benefit from further PT due to potential for further improvement and only being seen for 6 sporadic treatments so far. Discussed POC and patient was in agreement. She is looking at other compression options as discussed today. Physical Therapy Plan Frequency and Duration Frequency of Treatment 20 visits Duration of treatment (weeks) 12 Plan of Care Start Date 09/05/23 Plan of Care End Date 12/06/23 Therapeutic Interventions Therapeutic Interventions Home Exercise Program, Lymphedema Management,Manual Therapy,Patient/Caregiver Education,Self-Care/Home Management,Soft Tissue Mobilization Modalities Vasopneumatic Devices Next Visit Focus/Plan Next Note Type Treatment Note Next Visit Plan Continue CDT. Pin and stretch for left shoulder and lateral trunk Circumferential measurements. REview self- bandaging in case of flare. Plan of Care Dates Plan of Care Start Date 09/05/23 Plan of Care End Date 12/06/23 Electronically Signed by: Melonie Antonio, PT 09/05/23 7978 If you are in agreement with this Plan of Care, please return a signed and dated copy. I have reviewed this Plan of Care and certify that the skilled therapy services above are required to meet the patient?s needs. Physician Signature Date Printed Name and Credentials Clinical Instructor Signature Printed Name and Credentials
--- NOTE | 2023-09-18 12:20 | PT-OP ANOTE ---
cancelled due to Covid+
--- NOTE | 2023-09-26 12:08 | PT.OTN ---
Current Diagnoses Malignant neoplasm of overlapping sites of right female breast (09/26/23) Physical Therapy Treatment Note PT-OP-A Visit Information Start: 06/05/23 12:30 Freq: Status: Active Protocol: Document 09/26/23 08:05 [facility] (Rec: 09/26/23 09:45 [facility] [id number]) Out-Patient Physical Therapy Visit Information Visit Information Visit Type Treatment Note Visit Start Time 08:15 Visit Number 7 Precautions Precautions history breast cancer PT-OP-B Current Condition Start: 06/05/23 12:30 Freq: Status: Active Protocol: Document 09/05/23 13:39 SAK (Rec: 09/05/23 15:01 [facility] [id number]) Current Condition History of Current Condition Onset Date 2019 Current Complaints swelling left UE and subaxillary region History of Current Condition malignant neoplasm right breast s/p sarah mastectomy 2019. Had very large lymph node on left node; removed, that space just kept filling with fluid, having swelling on left arm, seemed to resolve. 1 1/2 years ago reports the area where the fluid used to collect and lateral edge of scar on left hurts and is hard . Soreness increases during the night. Has a compression sleeve for sarah UE's and lymphedema pump (Flexitouch), hasn't used in about a year. Has done PT for lymphedema right UE in [facility]. At this time only wears compression sleeves when flying, thinks they still fit. No compression for subaxillary area. Hasn't done lymphatic massage for about a year, hasn 't done scar massage. Gets keloid scars. Considering reconstruction Prior Treatments and Tests PT in [facility] 2018 PT-OP-C Subjective Start: 06/05/23 12:30 Freq: Status: Active Protocol: Document 09/26/23 08:05 [facility] (Rec: 09/26/23 09:45 [facility] [id number]) OP-PT Subjective Patient Comments Patient Comments Went on girl's weekend in [place], ended up with Covid. Wore sleeves on the plane, wore new bra (Amoena) very supportive. Keeps getting hard lumps in both armpit, massages them out. Sees oncologist November 03. Has been doing HEP though feels like she activates nerves. Wore compression sleeves on airplane. MOst painful is congestion under arm and painful nodules and nerve areas in chest with exercise. Has a lymphedema pump, hasn't been using, needs to bring it in. Gained 5 lbs since last seen. PT-OP-J Posture/Palpation/Skin Start: 06/05/23 12:30 Freq: Status: Active Protocol: Document 06/07/23 08:52 [facility] (Rec: 06/07/23 10:52 [facility] [id number]) Palpation Assessment Location left subaxillary Palpation Findings Edema,Tenderness Skin Assessment Edema Assessment left subaxillary Subjective Edema Description Pain,Tightness Comments lymphedema Left Arm Subjective Edema Description Tightness Comments lymphedema Incisional Assessment Incision Appearance/Comments well healed, good mobility PT-OP-K Range of Motion Start: 06/05/23 12:30 Freq: Status: Active Protocol: Document 06/07/23 08:52 [facility] (Rec: 06/07/23 10:52 [facility] [id number]) Shoulder Goniometric Range of Motion Shoulder Left Shoulder ROM WFL No Flexion 155 Extension 30 Abduction 150 Horizontal Abduction 145 External Rotation at 45 degrees 60 Abduction Internal Rotation Behind Back (text) T8 Right Shoulder ROM WFL Yes Shoulder ROM Limitations Shoulder ROM Limitations Soft Tissue Tightness,Pain, Swelling PT-OP-N Lymphedema Start: 06/05/23 12:30 Freq: Status: Active Protocol: Document 09/26/23 08:05 [facility] (Rec: 09/26/23 09:45 [facility] [id number]) Lymphedema Measurements Upper Extremity Circumference Measurements Right Affected MCP 20.3 cm Dorsum of Hand 21.8 cm Wrist 18.8 cm 5 cm From Wrist Crease 22.9 cm 10 cm From Wrist Crease 26.7 cm 15 cm From Wrist Crease 28.7 cm 20 cm From Wrist Crease 29.4 cm 25 cm From Wrist Crease 31.6 cm 30 cm From Wrist Crease 25.8 cm 35 cm From Wrist Crease 38.7 cm 40 cm From Wrist Crease 43.2 cm Elbow Joint 29 cm Left Unaffected MCP 19 cm Dorsum of Hand 20.4 cm Wrist 18.5 cm 5 cm From Wrist Crease 22.3 cm 10 cm From Wrist Crease 25.5 cm 15 cm From Wrist Crease 28.3 cm 20 cm From Wrist Crease 29.3 cm 25 cm From Wrist Crease 32.7 cm 30 cm From Wrist Crease 38.5 cm 35 cm From Wrist Crease 42.6 cm 40 cm From Wrist Crease 43.8 cm Elbow Joint 29.4 cm - 116.5 125 PT-OP-Q Treatments Start: 06/05/23 12:30 Freq: Status: Active Protocol: Document 09/26/23 08:15 [facility] (Rec: 09/26/23 12:08 [facility] [id number]) Lymphedema Treatment Manual Lymphatic Drainage Location for left subaxillary and left UE edema Comments Encouraged increased compliance and/or use of Flexitouch pump. Lymphedema Wrapping Other next session Sequential Lymphedema Exercises Comments encouraged inc compliance now that healthy from Covid Compression Garment Assessment Compression Garment Assessment Details not wearing today. Shown options for better bra (Wear ease channeled massage bra), and Compression shirt (wear ease compression shirt with subaxillary foam insert) PT-OP-T Assessment and Plan Start: 06/05/23 12:30 Freq: Status: Active Protocol: Document 09/26/23 08:05 [facility] (Rec: 09/26/23 09:45 [facility] [id number]) Physical Therapy Assessment Goals Three Impairment pain subaxillary region and chest left Filling Hauler Weaving Goal (LTG) Decrease pain to no greater than 2/10 to allow patient to sleep through the night 07/05/23: goal progress 09/05/23: decreased after PT but then returns LTG Duration 12/05/23 Two Impairment lymphedema life impact scale 42% Filling Hauler Weaving Goal (LTG) Decrease lymphedema life impact scale to no greater than 20% as measure of improved understanding and self management and improved activity tolerance and quality of life. 07/05/23: goal progress LTG Duration 12/06/23 One Impairment lymphedema sarah UE left greater than right, left subaxillary lymphedema Short Term Goal (STG) Patient to be instructed in all aspects of lymphedema care including skin care, manual lymphatic drainage, lymphedema exercises, and compression 07/05/23: good goal progress, less cues requird STG Duration 10/16/23 Filling Hauler Weaving Goal (LTG) Patient to be independent and compliant with all aspects of lymphedema care, decrease circumferential measurements to stable level (no increase or decrease greater than 1 cm over the course of 1 week), and obtain appropriate compression garments 09/05/23: has bra, pump, sleeve, needs to get over the shoulder sleeve. LTG Duration 12/06/23 Assessment Summary Assessment Circumferential measurements mostly increased after travel, Covid, gain 5 lbs. Not using compression pump, advised to call company to problem solve. Shown new products from [employer] and patient to consider, feel both compression bra with textured material and/or compression shirt with axillary foam would be very beneficial for her. Continued CDT. Physical Therapy Plan Frequency and Duration Frequency of Treatment 20 visits Duration of treatment (weeks) 12 Plan of Care Start Date 09/05/23 Plan of Care End Date 12/06/23 Therapeutic Interventions Therapeutic Interventions Home Exercise Program, Lymphedema Management,Manual Therapy,Patient/Caregiver Education,Self-Care/Home Management,Soft Tissue Mobilization Modalities Vasopneumatic Devices Next Visit Focus/Plan Next Note Type Treatment Note Next Visit Plan Patient to call [email or web address] regarding compression bra and or shirt with axillary foam insert. Also to call [employer] regarding problem solving fit and use of Flexitouch pump. She may bring next PT session. Continue CDT, soft tissue work .
--- NOTE | 2024-10-29 09:51 | PT.OPDS ---
Current Diagnoses Malignant neoplasm of overlapping sites of right female breast (09/26/23) Visit Care Team Role Provider Type Meredith Booker DNP, MARRIAGE PERFORMER Family Provider Non-Staff Primary Care Provider Specialty: Medical Address: [address], [place], [address] Email: Franki Dunaway MD Attending Provider Physician Referring Provider Specialty: Oncology Address: [address] [place] [address], [address], [place], [address] Email: Visit Number Visit Number 7 Discharge Summary PT-OP-B Current Condition Start: 06/05/23 12:30 Freq: Status: Active Protocol: Document 09/05/23 13:39 [facility]AK (Rec: 09/05/23 15:01 [facility]AK [id number]) Current Condition History of Current Condition Onset Date 2018 Current Complaints swelling left UE and subaxillary region History of Current Condition malignant neoplasm right breast s/p sarah mastectomy 2019. Had very large lymph node on left node; removed, that space just kept filling with fluid, having swelling on left arm, seemed to resolve. 1 1/2 years ago reports the area where the fluid used to collect and lateral edge of scar on left hurts and is hard . Soreness increases during the night. Has a compression sleeve for sarah UE's and lymphedema pump (Flexitouch), hasn't used in about a year. Has done PT for lymphedema right UE in [facility]. At this time only wears compression sleeves when flying, thinks they still fit. No compression for subaxillary area. Hasn't done lymphatic massage for about a year, hasn 't done scar massage. Gets keloid scars. Considering reconstruction Prior Treatments and Tests PT in [facility] 2018 PT-OP-C Subjective Start: 06/05/23 12:30 Freq: Status: Active Protocol: Document 09/26/23 08:05 [facility] (Rec: 09/26/23 09:45 [facility]AK [id number]) OP-PT Subjective Patient Comments Patient Comments Went on girl's weekend in [place], ended up with Covid. Wore sleeves on the plane, wore new bra (Amoena) very supportive. Keeps getting hard lumps in both armpit, massages them out. Sees oncologist November 03. Has been doing HEP though feels like she activates nerves. Wore compression sleeves on airplane. MOst painful is congestion under arm and painful nodules and nerve areas in chest with exercise. Has a lymphedema pump, hasn't been using, needs to bring it in. Gained 5 lbs since last seen. PT-OP-J Posture/Palpation/Skin Start: 06/05/23 12:30 Freq: Status: Active Protocol: Document 06/07/23 08:52 [facility] (Rec: 06/07/23 10:52 [facility] [id number]) Palpation Assessment Location left subaxillary Palpation Findings Edema,Tenderness Skin Assessment Edema Assessment left subaxillary Subjective Edema Description Pain,Tightness Comments lymphedema Left Arm Subjective Edema Description Tightness Comments lymphedema Incisional Assessment Incision Appearance/Comments well healed, good mobility PT-OP-K Range of Motion Start: 06/05/23 12:30 Freq: Status: Active Protocol: Document 06/07/23 08:52 [facility] (Rec: 06/07/23 10:52 [facility] [id number]) Shoulder Goniometric Range of Motion Shoulder Left Shoulder ROM WFL No Flexion 155 Extension 30 Abduction 150 Horizontal Abduction 145 External Rotation at 45 degrees 60 Abduction Internal Rotation Behind Back (text) T8 Right Shoulder ROM WFL Yes Shoulder ROM Limitations Shoulder ROM Limitations Soft Tissue Tightness,Pain, Swelling PT-OP-N Lymphedema Start: 06/05/23 12:30 Freq: Status: Active Protocol: Document 09/26/23 08:05 [facility] (Rec: 09/26/23 09:45 [facility] [id number]) Lymphedema Measurements Upper Extremity Circumference Measurements Right Affected MCP 20.3 cm Dorsum of Hand 21.8 cm Wrist 18.8 cm 5 cm From Wrist Crease 22.9 cm 10 cm From Wrist Crease 26.7 cm 15 cm From Wrist Crease 28.7 cm 20 cm From Wrist Crease 29.4 cm 25 cm From Wrist Crease 31.6 cm 30 cm From Wrist Crease 25.8 cm 35 cm From Wrist Crease 38.7 cm 40 cm From Wrist Crease 43.2 cm Elbow Joint 29 cm Left Unaffected MCP 19 cm Dorsum of Hand 20.4 cm Wrist 18.5 cm 5 cm From Wrist Crease 22.3 cm 10 cm From Wrist Crease 25.5 cm 15 cm From Wrist Crease 28.3 cm 20 cm From Wrist Crease 29.3 cm 25 cm From Wrist Crease 32.7 cm 30 cm From Wrist Crease 38.5 cm 35 cm From Wrist Crease 42.6 cm 40 cm From Wrist Crease 43.8 cm Elbow Joint 29.4 cm - 116.5 125 PT-OP-T Assessment and Plan Start: 06/05/23 12:30 Freq: Status: Active Protocol: Document 10/29/24 09:50 [facility] (Rec: 10/29/24 09:51 [facility] [employer]) Physical Therapy Plan Discharge Physical Therapy Discharge Reasons No Longer Attending PT
== END | disposition home or self-care (01) ==
LOC: PHYS 06-07 08:46
PROVIDERS: Family Provider Nurse Practitioner Family; PCP Nurse Practitioner Family; Referring Provider Internal Medicine Hematology & Oncology; Visit Provider Internal Medicine Hematology & Oncology
DX: C50.811 Malignant neoplasm of overlapping sites of right female breast (principal)
CPT/HCPCS: 97110; 97140; 97162; 97535